=== PATIENT | male | born 1970 | race Two or more races ===

== ENCOUNTER 2023-06-14 05:23 | Inpatient (IN) | payer OTHER ==
[~2023-06-14] VITALS: Ht 177.8 cm; Wt 96.7 kg
[2023-06-14] VITALS (8 sets, daily range): BP systolic 104–142; BP diastolic 73–93; PULSE 70–81; RESP 11–16; TEMP 97.5; O2SAT 93–99
[~2023-06-14 05:23] MED LIST: ATOR20TA PO; CHOL20004 PO; LISI10TA27 PO; METF-438 PO; PIOG15TA8 PO; ringers solution, lacted 1,000 ML IV SCH
[2023-06-14] MEDS ORDERED: famotidine 20mg tablet PO ONE (05:30)
--- NOTE | 2023-06-14 05:45 | NUR ---
PULSES PRESENT AND MARKED.
[2023-06-14] MEDS ORDERED: ceFAZolin 1,000 MG in NS 50ML IVPB IV ONE (06:40)
[2023-06-14] MEDS ORDERED: ROPIVAcaine 0.5% (5mg/ml) 30ml vial ONE ×2 (07:21→08:38)
[2023-06-14] MEDS ORDERED: sevoflurane 250ml liquid IH ONE (07:34)
[2023-06-14] MEDS ORDERED: cefazolin 2gm/D5W 100ml IV.soln IV ONE (07:34)
[2023-06-14] MEDS ORDERED: propofol inj 20 ML IV ONE (07:36)
[2023-06-14] MEDS ORDERED: fentaNYL/PF 50MCG/1 ML 2ML syringe ONE (07:36)
[2023-06-14] MEDS ORDERED: midazolam 1 mg/ML 2ml injection ONE (07:36)
[2023-06-14] MEDS ORDERED: ceFAZolin 1000mg inj ONE (07:46)
[2023-06-14] MEDS ORDERED: dexamethasone sod phosphate 4mg/ml inj. ONE (08:07)
[2023-06-14] MEDS ORDERED: ondansetron/PF 4mg/2ml inj ONE (08:08)
[2023-06-14] MEDS ORDERED: ondansetron/PF 4mg/2ml inj IV PRN (08:30)
[2023-06-14] MEDS ORDERED: meperidine/PF 25mg/ml syringe IV PRN ×3 (08:30)
[2023-06-14] MEDS ORDERED: ringers solution, lacted 1,000 ML IV SCH (08:30)
[2023-06-14] MEDS ORDERED: proCHLORperazine 10 MG/2 ml inj IV PRN (08:30)
[2023-06-14] MEDS ORDERED: morphine 4 MG/ML inj SYRINge IV PRN (08:30)
[2023-06-14] MEDS ORDERED: morphine 2 MG/ML inj. syringe IV PRN (08:30)
--- NOTE | 2023-06-14 08:52 | NUR ---
Received from OR via BED, accompanied by Anesthesiologist and report given by SUSHANT Anesthesiologist. PATIENT WAKING UP, NO S/S OF PAIN, V/S WNL, SCD ON, 20G TO LEFT HAND, DRESSING to RIGHT KNEE C/D/I. Addendum: 06/14/23 at 0907 by Tyler Crouch RN Amended: Links added.
--- NOTE | 2023-06-14 09:52 | NUR ---
ALL DISCHARGE CRITERIA HAS BEEN MET. VSS, PAIN AT A TOLERABLE LEVEL, ABLE TO SAFELY AMBULATE AND TRANSFER SELF. IV TAKEN OUT WITHOUT ANY COMPLICATIONS. ALL DISCHARGE INSTRUCTIONS COVERED WITH PATIENT AND ALL QUESTIONS ANSWERED. PATIENT TAKEN OUT VIA WHEELCHAIR WITH ALL BELONGINGS TO [facility] WHERE OFFICERS DROVE PATIENT TO FACILITY. Addendum: 06/14/23 at 1020 by Tyler Crouch RN Amended: Links added.
== END 2023-06-14 09:52 | DRG 489 ==
LOC: PAS IN 05:23 → EEVIPCON 07:30
PROVIDERS: ADMIT Orthopaedic Surgery; ATTEND Orthopaedic Surgery
PROC: 0SCC4ZZ Extirpation of Matter from Right Knee Joint, Percutaneous Endoscopic Approach (ICD-10-PCS; 2023-06-14)
PROC: 3E0T3BZ Introduction of Anesthetic Agent into Peripheral Nerves and Plexi, Percutaneous Approach (ICD-10-PCS; 2023-06-14)
PROC: 3E0T33Z Introduction of Anti-inflammatory into Peripheral Nerves and Plexi, Percutaneous Approach (ICD-10-PCS; 2023-06-14)
PROC: 0SBC4ZZ Excision of Right Knee Joint, Percutaneous Endoscopic Approach (ICD-10-PCS; principal; 2023-06-14 07:34)
DX: S83.241A Other tear of medial meniscus, current injury, right knee, initial encounter (principal); I10 Essential (primary) hypertension; E11.22 Type 2 diabetes mellitus with diabetic chronic kidney disease; F14.10 Cocaine abuse, uncomplicated; F15.10 Other stimulant abuse, uncomplicated; E55.9 Vitamin D deficiency, unspecified; M65.861 Other synovitis and tenosynovitis, right lower leg; M23.41 Loose body in knee, right knee; X58.XXXA Exposure to other specified factors, initial encounter; Y93.89 Activity, other specified; Z79.899 Other long term (current) drug therapy; Y92.89 Other specified places as the place of occurrence of the external cause; Y99.8 Other external cause status
CPT/HCPCS: 82948; 93005; A4215; A4618; A6449; A7000; J0690; J1100; J2175; J2250; J2405; J2704; J2795; J3010; J7120